=== PATIENT | female | born 1970 | race Two or more races ===

== ENCOUNTER 2017-12-20 07:49 | Emergency (ER) | payer OTHER ==
[2017-12-20 08:16] VITALS: BP 156/81
--- NOTE | 2017-12-20 08:37 | EDPHY ---
H & P Time Seen by Provider: 12/20/17 08:36 HPI/ROS: Chief complaint. Painful urination HPI. 47-year-old female with history of UTIs presents with 1 day history of urinary frequency and dysuria. Symptoms started last night and she took azo Gantrisin and has increased fluids. She has discomfort in the suprapubic area but no flank tenderness. She denies fever or flank pain or nausea vomiting. Symptoms are similar to previous UTIs. Otherwise no abdominal pain. No chest discomfort or trouble breathing. ROS Constitutional. no fever/chills, no weakness Eyes. no problems with vision ENT. no sore throat, no nasal drainage Cardiovascular. no chest pain Respiratory. no shortness of breath, no cough Abdominal. no abdominal pain, no nausea/vomiting, no diarrhea . Urinary frequency and dysuria MS. no calf pain/swelling, no neck/back pain, no joint pain Skin. no rash Lymph. no swollen glands Neuro. no headache, no dizziness, no difficulty walking or with speech Past Medical/Surgical History: Endometriosis, ovarian cyst removal, UTI Social History: , nonsmoker, no alcohol Physical Exam: General Appearance: Alert pleasant well-developed female mild distress vital signs are stable Eyes: Pupils equal and round no pallor or injection. ENT, Mouth: Mucous membranes are moist. Respiratory: There are no retractions, lungs are clear to auscultation. Cardiovascular: Regular rate and rhythm. Gastrointestinal: Abdomen is soft and nontender, no masses, bowel sounds normal. No flank tenderness Neurological: Awake and alert, sensory and motor exams grossly normal. Skin: Warm and dry, no rashes. Musculoskeletal: Neck is supple nontender. Extremities symmetrical, full range of motion. Psychiatric: Patient is oriented X 3, there is no agitation. Constitutional: Initial Vital Signs Temperature (C) 36.9 C 12/20/17 08:04 Heart Rate 66 12/20/17 08:04 Respiratory Rate 16 12/20/17 08:04 Blood Pressure 156/81 H 12/20/17 08:04 O2 Sat (%) 100 12/20/17 08:04 O2 Delivery Mode Room Air Allergies/Adverse Reactions: ampicillin Allergy (Verified 12/20/17 08:08) Home Medications: Medication Instructions Recorded Cephalexin [Keflex (*)] 500 mg PO TID #15 cap 12/20/17 Phenazopyridine HCl [Pyridium] 200 mg PO TID #6 tab 12/20/17 Medical Decision Making Procedures: Urine dips positive for leukocytes and blood ED Course/Re-evaluation: Patient remained stable on re-evaluation. She and I discussed laboratory evaluation, treatment plan including criteria for return and importance of follow-up and further evaluation. She expresses understanding and agreement Differential Diagnosis: I considered urinary tract infection, pyelonephritis, ovarian cyst, kidney stone - Data Points Point of Care Test Results: Urine Dip Collection Date 12/20/17 Collection Time 08:20 Specific [place] (1.002-1.030) 1.005 PH (5.0-7.5) 6.5 Leukocytes (Negative) Trace Nitrites (Negative) Negative Protein (Negative) Negative Glucose (Negative) Negative Ketones (Negative) Negative Urobilnogen (0.2-1.0 EU) 0.2 Bilirubin (Negative) Negative Blood (Negative) 1+ Departure - Departure Disposition: Home, Routine, Self-Care Clinical Impression: Urinary tract infection Qualifiers: Urinary tract infection type: acute cystitis Hematuria presence: with hematuria Qualified Code(s): N30.01 - Acute cystitis with hematuria Condition: Good Instructions: Urinary Tract Infection in Women (ED) Additional Instructions: Drink plenty of fluids and stay hydrated. Azo or pyridium to help relieve discomfort Cephalexin as antibiotic. Return for flank pain, vomiting, fever Recheck in 2 days if not improved Referrals: Rosario Santo PA [Primary Care Provider] - 2-3 days, if not improved Prescriptions: Cephalexin [Keflex (*)] 500 mg PO TID #15 cap Phenazopyridine HCl [Pyridium] 200 mg PO TID #6 tab
== END 2017-12-20 08:53 | disposition home or self-care (01) ==
LOC: CED 07:49
DX: N30.01 Acute cystitis with hematuria (principal); Z87.440 Personal history of urinary (tract) infections